=== PATIENT | female | born 1975 | race Caucasian/White ===

== ENCOUNTER 2024-07-08 00:57 | Emergency (ER) | payer SELFPAY ==
[~2024-07-08] VITALS: Ht 167.6 cm; Wt 100.0 kg
[2024-07-08 01:04] VITALS: BP 173/84; TEMP 97.2; O2SAT 98
== END 2024-07-08 01:50 | disposition left against medical advice (07) ==
LOC: M ED 00:57
DX: Z53.21 Procedure and treatment not carried out due to patient leaving prior to being seen by health care provider (principal)